=== PATIENT | male | born 1990 | race Two or more races ===

== ENCOUNTER 2020-02-25 01:38 | Emergency (ER) | payer OTHER ==
[~2020-02-25] VITALS: Ht 177.8 cm; Wt 68.0 kg
[2020-02-25] MEDS ORDERED: PEPTO-BISM262 MG/15 (01:52)
[2020-02-25] MEDS ORDERED: ACID REDUCER20 M1 (01:53)
== END 2020-02-25 06:44 | disposition home or self-care (01) ==
LOC: ER 01:38
DX: B34.9 Viral infection, unspecified (principal); R10.13 Epigastric pain; Z03.818 Encounter for observation for suspected exposure to other biological agents ruled out